=== PATIENT | male | born 1935 | race African-American/Black ===

== ENCOUNTER 2018-04-30 19:23 | Emergency (ER) | payer MEDICARE ==
[~2018-04-30] VITALS: Ht 182.9 cm; Wt 79.8 kg
[2018-04-30] MEDS ORDERED: Ketorolac 30mg Inj IM ONE (19:45)
[2018-04-30] MEDS ORDERED: Norco 5mg/325mg tab ORAL ONE (19:45)
[2018-04-30 20:23] VITALS: BP 155/83
[2018-04-30] MEDS ORDERED: GABAPENTIN300 MG ORAL (20:38)
[2018-04-30] MEDS ORDERED: FISH OIL 1,0001 EAC1 ORAL (20:38)
[2018-04-30] MEDS ORDERED: ALENDRONATE SOD10 MG ORAL (20:38)
[2018-04-30] MEDS ORDERED: CALCIUM + VITA1 EAC1 PO (20:38)
[2018-04-30] MEDS ORDERED: CYCLOBENZAPRINE10 MG ORAL (20:38)
[2018-04-30] MEDS ORDERED: Morphine Sulfate 4mg/ml Inj IM ONE (21:15)
[2018-04-30 22:20] VITALS: BP 159/84
[2018-04-30] MEDS ORDERED: Methocarbamol 750mg tab ORAL ONE (22:30)
[2018-04-30] MEDS ORDERED: IBUPROFEN400 MG ORAL (22:49)
[2018-04-30] MEDS ORDERED: NORCO 5-325 TA1 EACH ORAL (22:49)
--- NOTE | 2018-04-30 23:49 | Emergency Room Report ---
History of Present Illness General Chief Complaint: Generalized Weakness Source: Patient Present Illness Allergies: Coded Allergies: No Known Allergies (Unverified , 04/30/18) Nursing Documentation-H Past Medical History: No History, Except For Physical Exam Vital Signs Date Time Temp Pulse Resp B/P (MAP) Pulse Ox O2 Delivery O2 Flow Rate FiO2 04/30/18 19:18 97.8 77 16 150/88 95 Room Air 97.9 Medical Decision Making Diagnostic Impression: Primary Impression: Osteoarthritis Qualified Codes: M17.0 - Bilateral primary osteoarthritis of knee ER Course Patient signout to me. He presents with knee pain and hard time walking. Better after medication. He is able to stand up and bear weight. We'll put him on a cane or walker. We'll discharge home. He may need knee replacement. No evidence of septic joint. No evidence of infection. no evidence fracture or dislocation. Last Vital Signs Date Time Temp Pulse Resp B/P (MAP) Pulse Ox O2 Delivery O2 Flow Rate FiO2 04/30/18 22:20 97.4 68 16 159/84 95 Room Air 97.4 Status: improved Disposition: HOME, SELF-CARE Condition: Stable Scripts Ibuprofen* (MOTRIN*) 400 Mg Tablet 400 MG ORAL Q8H, #30 TAB 0 Refills Prov: Jesus Wheeler MD 04/30/18 Hydrocodone Bit/Acetaminophen 5-325* (NORCO 5-325*) 1 Each Tablet 1 TAB ORAL Q6H PRN for For Pain, #10 TAB 0 Refills Prov: Jesus Wheeler MD 04/30/18 Patient Instructions: Arthritis, [id number] MELITA PEACOCK M.D. Apr 30, 2018 23:49
[2018-04-30 23:54] VITALS: BP 142/81
[2018-05-01 00:20] VITALS: BP 142/81
== END 2018-05-01 00:20 | disposition home or self-care (01) ==
LOC: EDBD 19:23 → EMR 19:45
DX: M17.0 Bilateral primary osteoarthritis of knee (principal)
CPT/HCPCS: 96372; 99284; J1885; J2270